=== PATIENT | female | born 1945 | race Caucasian/White ===

== ENCOUNTER 2023-07-12 13:45 | Emergency (ER) | payer MEDICARE ==
[~2023-07-12] VITALS: Ht 160 cm; Wt 62.1 kg
[2023-07-12 13:56] VITALS: BP_SYST 137; PULSE 92; RESP 18; O2SAT 96
[2023-07-12 15:47] VITALS: BP_SYST 137; PULSE 81; RESP 21; TEMP 97.5; O2SAT 94
== END 2023-07-12 15:06 | disposition home or self-care (01) ==
LOC: SED 13:45
DX: S01.01XA Laceration without foreign body of scalp, initial encounter (principal); Z79.899 Other long term (current) drug therapy; W01.0XXA Fall on same level from slipping, tripping and stumbling without subsequent striking against object, initial encounter; Y93.89 Activity, other specified; Y92.89 Other specified places as the place of occurrence of the external cause; Y99.8 Other external cause status
CPT/HCPCS: 99282